=== PATIENT | male | born 1980 | race Caucasian/White ===

== ENCOUNTER 2020-06-06 03:13 | Emergency (ER) | payer OTHER, SELFPAY ==
[2020-06-06 03:14] VITALS: BP 150/80; PULSE 120; O2SAT 98
[2020-06-06 03:21] VITALS: BP 138/75; PULSE 96; RESP 18; TEMP 37.1; O2SAT 97; BMI 32.3
--- NOTE | 2020-06-06 03:34 | ED.WOUNDLAC ---
HPI - Wound/Laceration General Chief Complaint: Wound/Laceration Stated Complaint: CUT THUMB OPENING BOTTLE,ETOH USE Time Seen by Provider: 06/06/20 03:28 Source: patient Mode of arrival: EMS Limitations: no limitations History of Present Illness HPI narrative: Patient comes emergency room complaining of a left thumb laceration. Patient states that he was trying to open a beer bottle, patient was already intoxicated, for a lot of pressure on the bottle neck which snap, patient lacerated the palmar aspect of his left thumb. EMS apply compression dressings and brought to the emergency room. Otherwise patient has no complaints. Patient states that he is up-to-date with his tetanus immunization. Related Data Allergies Allergy/AdvReac Type Severity Reaction Status Date / Time No Known Allergies Allergy Verified 06/06/20 03:20 Review of Systems Review of Systems: Constitutional : No Weight loss, No Fever, No Chills, No Night Sweats, No Fatigue, No Malaise ENT/Mouth : No Hearing loss, No Ear Pain, No Nasal Congestion, No Sinus Pain, No Hoarseness, No sore throat, No Rhinorrhea, No Swallowing Difficulty Eyes: No Eye Pain, No Swelling, No Redness, No Foreign Body, No Discharge, No Vision Changes Cardiovascular : No Chest Pain, No SOB, No Dyspnea on Exertion, No Orthopnea, No Edema, No Palpitations Respiratory : No Cough, No Sputum, No Wheezing, No Smoke Exposure, No Dyspnea Gastrointestinal : No Nausea, No Vomiting, No Diarrhea, No Constipation, No abdominal Pain, No Hematochezia, No Melena Genitourinary : no irregular bleeding, No Dysuria, No Urinary Frequency, No Hematuria, No Urinary Incontinence, No Urgency, No Flank Pain, No Urinary Flow Changes, No Hesitancy Musculoskeletal : No joint pain, No Myalgias, No Joint Swelling Skin : Laceration to the thumb palmar aspect on the left side Neuro : No Weakness, No Numbness, No Paresthesias, No Loss of Consciousness, No Dizziness, No Headache Psych : No Anxiety/Panic, No Depression, No SI/HI/AH/VH, No Social Issues, Heme/Lymph: No Bruising, No Bleeding,No Lymphadenopathy Endocrine : No Polyuria, No Polydipsia, No Temperature Intolerance PMFSH Past Medical History Medical History Eczema Social History Social History Advance Directives: No Advance Directives Information Provided: No Physical Exam Vital Signs: Vital Signs: Last Vital Signs Temp 98.7 F 06/06/20 03:21 Pulse 96 06/06/20 03:21 Resp 18 06/06/20 03:21 BP 138/75 06/06/20 03:21 Pulse Ox 97 06/06/20 03:21 Body Mass Index 32.3 Appearance: Alert. Oriented X3. No acute distress. Eyes: Pupils equal, round and reactive to light. ENT: Pharynx normal. Neck: Normal inspection. Neck supple. No lymph nodes noted. No crepitus CVS: Normal heart rate and rhythm. Pulses normal. Normal S1 and S2 Respiratory: No respiratory distress. Breath sounds normal. No Wheezing. No rales Abdomen: Soft and nontender. No rigidity. No distention. good BS x4 Skin: Skin warm and dry. Thumb palmar aspect left side has a U shaped laceration, thumb inspected under a bloodless field, not tendons visualized, patient is able to flex extend and oppose the left thumb Extremities: No lower extremity edema. No lower extremity edema. No Lacerations. No Rash Neuro: Oriented X 3. No motor deficit. No sensory deficit. Moving all extermities. No slurred speech. Course Course Course Narrative: Patient tolerated well the procedure. Patient instructed to return to the emergency room if he sees any signs of infection Procedures Laceration Laceration 1: Site: hand (Left thumb palmar aspect) Side (If applicable): left Size (cm): 1.5 Description: flap Depth: simple, single layer Local Anesthetic: lidocaine 2% Amount of anesthesia used (mL): 2 Pre-repair: wound explored and wound margins revised Skin layer closed with: nylon Size (cm): 6-0 Number of sutures: 5 Technique: simple, interrupted Discharge Plan Discharge Clinical Impression: Laceration Patient Disposition: Home, Self-Care Instructions: Finger Laceration (ED) Additional Instructions: Your stitches need to be removed in 7-10 days. If you have any signs of infection such as redness, pus drainage, severe pain, fever, any new symptoms, please return to the emergency room. Please follow-up with your primary care physician tomorrow. If you have any worsening or new symptoms, please return to the emergency room or call 911
[2020-06-06] MEDS: Lidocaine HCl 2 % MPF 5 ML VIAL 10 ML INFILTRATI (03:40)
== END 2020-06-06 04:27 | disposition home or self-care (01) ==
PROVIDERS: Emergency Provider Emergency Medicine; PCP Physician Assistant Medical
DX: S61.012A Laceration without foreign body of left thumb without damage to nail, initial encounter (principal); W26.8XXA Contact with other sharp object(s), not elsewhere classified, initial encounter; Y93.89 Activity, other specified; Y92.9 Unspecified place or not applicable; Y99.9 Unspecified external cause status
CPT/HCPCS: 12001; 99283; 99284

== ENCOUNTER 2021-04-04 20:44 | Emergency (ER) | payer OTHER, SELFPAY ==
[2021-04-04 20:59] VITALS: BP 120/64; PULSE 102; RESP 16; O2SAT 98; BMI 28.2
[2021-04-04 21:24] VITALS: BP 119/85; PULSE 90; RESP 18; TEMP 36.7; O2SAT 97
--- NOTE | 2021-04-04 21:35 | MHC.RECOVSUP ---
? Reason for consult:Recovery Support o Current location:ED10 o Identified substance use concern:ETOH - Withdrawal - Support ? Intervention: o Community resources provided o Harm reduction discussion ? Plan: o Patient awaiting crisis evaluation o Patient to follow up with [facility] after discharge ? Additional information:Patient had 4 beers, patient refuses detox. Gave patient community resources `
--- NOTE | 2021-04-04 21:38 | ED_ITS ---
HPI - Psych General Chief Complaint: ETOH/Substance Use Stated Complaint: SI, SECTION [employer] BY [employer] Time Seen by Provider: 04/04/21 21:26 Source: patient, EMS and police Mode of arrival: EMS Limitations: no limitations History of Present Illness HPI Narrative: 40-year-old male brought in by police department in [place] for further evaluation of SI/ alcohol intoxication. The patient in the ED admitted to drinking plenty of alcohol last night, but patient do not think he has drunk, the police brought in the patient after patient's mother reported SI, mother stated that the patient was trying to strangulate himself with a rope. however patient is declining that he is SI or he tried to strangulate himself. reportedly, mother showed the police a picture of the patient with a melnay up around his neck and he standing on a chair. Related Data Allergies Allergy/AdvReac Type Severity Reaction Status Date / Time No Known Allergies Allergy Verified 06/06/20 03:20 Review of Systems Review of Systems: all other systems are reviewed and are negative Constitutional: Reports as per HPI and Reports no additional constitutional complaints Eyes: Reports as per HPI and Reports no additional eye complaints Reports system reviewed and no additional complaints, except as documented Cardiovascular: Reports as per HPI and Reports no additional cardiovascular comp laints Respiratory: Reports as per HPI and Reports no additional respiratory complaints Gastrointestinal: Reports as per HPI and Reports no additional gastrointestinal complaints Genitourinary: Reports no additional female genitourinary complaints Musculoskeletal: Reports no additional musculoskeletal complaints Skin/Breast: Reports system reviewed and no additional complaints, except as docu Psychiatric: Reports no additional psychiatric complaints Endocrine: Reports no additional endocrine complaints Hematologic/Lymphatic: Reports no additional hematologic/lymphatic complaints Allergic/Immunologic: Reports no additional allergic/immunologic complaints Reports system reviewed and no additional complaints, except as documented and Reports Abnormal speech present [facility] Past Medical History Medical History Eczema Social History Social History Advance Directives: No Physical Exam Vital Signs: Vital Signs: Last Vital Signs Temp 98.2 F 04/05/21 02:12 Pulse 75 04/05/21 02:12 Resp 16 04/05/21 02:12 BP 146/97 H 04/05/21 02:12 Pulse Ox 98 04/05/21 02:12 BMI result Body Mass Index 28.2 vital signs have been reviewed as appeared to be correct. Blood pressure normal. Heart rate normal. Respiration rate normal. Temperature normal. Oxygen saturation normal. Appearance: Alert. Oriented X3. No acute distress. Head: Normal external exam. Normocephalic. Atraumatic. No Concepcion signs noted. No raccoon eyes noted Eyes: PERRLA. EOMI. Conjunctiva and sclera normal. Eyelids normal. ENT: TM's Normal. Pharynx normal. Uvula midline. Moist mucous membranes. No trismus noted. No drooling noted. No muffled voice noted. Neck: Normal inspection. Neck supple. FROM. No adenopathy. Thyroid Normal. No meningeal signs. No neck mass noted. CVS: Normal heart rate and rhythm. Heart sound normal. No murmurs noted. Pulses normal throughout. Respiratory: No respiratory distress. Painless inspiration. Breath sounds normal. No wheezes/rales/rhonchi noted. Chest nontender. No accessory muscle usage noted or decreased air movement noted. Abdomen: Soft and nontender. Bowel sounds normal in all 4 quadrants. No distention noted. No organomegaly noted. No visible injury noted. Back: No CVA tenderness. Full range of motion noted. Skin: Skin warm and dry. Normal skin color. Normal skin turgor. No rashes/lesions/lacerations noted. Extremities: No lower extremity edema. Extremities exhibit normal range of motion. Extremities nontender. Neuro: Oriented X 3. Cranial nerve exam: II-XII are grossly intact No motor deficit. No sensory deficit. Reflexes normal. Patient Appearance: Appropriate Patient Orientation: Person, Place, Time and Situation Level of Consciousness: Awake, Appropriate and Alert Patient Behavior: Talkative, Cooperative. Mood Description: Depressed. Affect Description: Flat. Patient Cognition Impaired: No Ability to Follow Directions: Good Speech Pattern: Spontaneous Speech Memory Description: Intact Hallucinations: Not present. Delusions: Not Present Thought Process: Logical. Thought Content: Unremarkable Depressive Symptoms: Increased anxiety. Judgement: Fair. Course Reevaluation(s) Reevaluation #1: Physician observation started at 23:00 . Patient placed in physician observation because the patient needed further evaluation by N and placement patient's vital sign were stable, patient is alert and oriented , neuro exam unchanged, unremarkable rest of physical exam. MDM - Psych Lab Data Result diagrams: 04/04/21 21:59 04/04/21 21:59 Labs: Lab Results 04/04/21 04/04/21 04/04/21 Range/Units 21:59 21:59 21:59 WBC 6.1 (4.8-10.8) X10*3/uL RBC 5.24 (4.60-5.80) X10*6/uL Hgb 16.7 (14.0-18.0) g/dl Hct 48.9 (42.0-52.0) % MCV 93.3 (80.0-98.0) fL MCH 31.9 (27.0-33.0) pg MCHC 34.2 (31.0-36.0) g/dl RDW 12.5 (11.0-16.0) % Plt Count 345 (160-400) X10*3/uL MPV 8.6 L (9.4-12.4) fL Immature Gran % (Auto) 0.5 H (0.0-0.4) % Neut % (Auto) 53.8 (45-73) % Lymph % (Auto) 38.4 (20-40) % [place] % (Auto) 5.8 (2-11) % Eos % (Auto) 0.8 (0-4) % Baso % (Auto) 0.7 (0-2) % Lymph # (Auto) 2.3 (1.2-4.9) X10*3/uL [place] # (Auto) 0.4 (0.1-1.2) X10*3/uL Eos # (Auto) 0.1 (0.0-0.4) X10*3/uL Baso # (Auto) 0.0 (0.0-0.2) X10*3/uL Abs Immat Gran (auto) 0.03 (0.00-0.03) X10*3/uL Absolute Neuts (auto) 3.3 (2.0-8.3) x10*3/uL Absolute Nucleated RBC 0.000 (0.0-0.012) X10*3/uL Nucleated RBC % (auto) 0.0 (0.0-0.2) /100WBC Sodium 144 (135-145) mmol/L Potassium 4.6 (3.3-5.1) mmol/L Chloride 106 (96-108) mmol/L Carbon Dioxide 29 (22-29) mmol/L Anion Gap 14 (12-20) BUN 11 (9-16) mg/dL Creatinine 1.07 (0.5-1.4) mg/dL Estim Creat Clear Calc 95.7 Estimated GFR > 60 Random Glucose 138 H (60-115) mg/dL Calcium 10.1 (8.4-10.2) mg/dL Magnesium 2.3 (1.6-2.6) mg/dL Urine Opiates Screen (Not Detect) Urine Fentanyl Screen (Not Detect) Ur Barbiturates Screen (Not Detect) Ur Phencyclidine Scrn (Not Detect) Ur Amphetamines Screen (Not Detect) U Benzodiazepines Scrn (Not Detect) Urine Cocaine Screen (Not Detect) U Marijuana (THC) Screen (Not Detect) Ethyl Alcohol 307 H* mg/dL COVID-19 ([facility]) (Negative) COVID-19 Clin Com 04/04/21 04/04/21 Range/Units 22:10 23:19 WBC (4.8-10.8) X10*3/uL RBC (4.60-5.80) X10*6/uL Hgb (14.0-18.0) g/dl Hct (42.0-52.0) % MCV (80.0-98.0) fL MCH (27.0-33.0) pg MCHC (31.0-36.0) g/dl RDW (11.0-16.0) % Plt Count (160-400) X10*3/uL MPV (9.4-12.4) fL Immature Gran % (Auto) (0.0-0.4) % Neut % (Auto) (45-73) % Lymph % (Auto) (20-40) % [place] % (Auto) (2-11) % Eos % (Auto) (0-4) % Baso % (Auto) (0-2) % Lymph # (Auto) (1.2-4.9) X10*3/uL [place] # (Auto) (0.1-1.2) X10*3/uL Eos # (Auto) (0.0-0.4) X10*3/uL Baso # (Auto) (0.0-0.2) X10*3/uL Abs Immat Gran (auto) (0.00-0.03) X10*3/uL Absolute Neuts (auto) (2.0-8.3) x10*3/uL Absolute Nucleated RBC (0.0-0.012) X10*3/uL Nucleated RBC % (auto) (0.0-0.2) /100WBC Sodium (135-145) mmol/L Potassium (3.3-5.1) mmol/L Chloride (96-108) mmol/L Carbon Dioxide (22-29) mmol/L Anion Gap (12-20) BUN (9-16) mg/dL Creatinine (0.5-1.4) mg/dL Estim Creat Clear Calc Estimated GFR Random Glucose (60-115) mg/dL Calcium (8.4-10.2) mg/dL Magnesium (1.6-2.6) mg/dL Urine Opiates Screen Not Detected (Not Detect) Urine Fentanyl Screen Not Detected (Not Detect) Ur Barbiturates Screen Not Detected (Not Detect) Ur Phencyclidine Scrn Not Detected (Not Detect) Ur Amphetamines Screen Not Detected (Not Detect) U Benzodiazepines Scrn Not Detected (Not Detect) Urine Cocaine Screen Not Detected (Not Detect) U Marijuana (THC) Screen Not Detected (Not Detect) Ethyl Alcohol mg/dL COVID-19 ([facility]) Negative (Negative) COVID-19 Clin Com See Note Discharge Plan Discharge Clinical Impression: Alcoholic intoxication
[2021-04-04 22:03] LABS: MANUAL DIFF FLAG NO
[2021-04-04 22:04] LABS: Basophils Percent Auto 0.7 % (0-2); Eosinophils Absolute Auto 0.1 X10*3/uL (0.0-0.4); Eosinophils Percent Auto 0.8 % (0-4); Hematocrit 48.9 % (42.0-52.0); Hemoglobin 16.7 g/dl (14.0-18.0); Imm Gran Abs Auto 0.03 X10*3/uL (0.00-0.03); Imm Gran Pct Auto 0.5 % (0.0-0.4); Lymphocytes Absolute Auto 2.3 X10*3/uL (1.2-4.9); Lymphocytes Percent Auto 38.4 % (20-40); Mean Corpuscular HGB Conc 34.2 g/dl (31.0-36.0); Mean Corpuscular Hemoglobin 31.9 pg (27.0-33.0); Mean Corpuscular Volume 93.3 fL (80.0-98.0); Mean Platelet Volume 8.6 fL (9.4-12.4); Monocytes Absolute Auto 0.4 X10*3/uL (0.1-1.2); Monocytes Percent Auto 5.8 % (2-11); Neutrophils Absolute Auto 3.3 x10*3/uL (2.0-8.3); Neutrophils Percent Auto 53.8 % (45-73); Platelet Count 345 X10*3/uL (160-400); Red Blood Count 5.24 X10*6/uL (4.60-5.80); Red Cell Distribution Width 12.5 % (11.0-16.0); White Blood Count 6.1 X10*3/uL (4.8-10.8)
[2021-04-04 22:15] LABS: Ethanol 307 mg/dL
[2021-04-04 22:16] VITALS: BP 138/93; PULSE 88; RESP 17; O2SAT 97
[2021-04-04 22:17] LABS: Anion Gap 14 (12-20); Blood Urea Nitrogen 11 mg/dL (9-16); Calcium 10.1 mg/dL (8.4-10.2); Carbon Dioxide 29 mmol/L (22-29); Chloride 106 mmol/L (96-108); Creatinine Clr Calc Pharmacy 95.7; Estimated Glomerular Filt Rate > 60; Glucose Random 138 mg/dL (60-115); Potassium 4.6 mmol/L (3.3-5.1); Sodium 144 mmol/L (135-145)
[2021-04-04 22:31] LABS: Amphetamine Screen Urine Not Detected (Not Detect); Barbiturates, Urine Not Detected (Not Detect); Benzodiazepines Screen Urine Not Detected (Not Detect); Cannabinoid Screen Urine Not Detected (Not Detect); Cocaine Screen Urine Not Detected (Not Detect); Fentanyl, urine Not Detected (Not Detect); Opiate Screen Urine Not Detected (Not Detect); Phencyclidine Screen Urine Not Detected (Not Detect)
[2021-04-04 23:21] VITALS: BP 134/94; PULSE 78; RESP 18; TEMP 37; O2SAT 98
[2021-04-04 23:35] LABS: Magnesium 2.3 mg/dL (1.6-2.6)
[2021-04-04 23:43] LABS: COVID-19 Test Negative (Negative)
[2021-04-05] VITALS (7 sets, daily range): BP systolic 118–146; BP diastolic 80–97; PULSE 75–93; RESP 14–18; TEMP 36.6–36.8; O2SAT 97–98
--- NOTE | 2021-04-05 01:21 | PC.NURSE ---
[facility] crisis referral completed.
--- NOTE | 2021-04-05 01:52 | PC.NURSE ---
This RN spoke to PT's mother, with PT's consent, about the events that transpired on Sunday (04/04/2021) evening. PT's mother stated the PT placed a rope around his neck, stood on a chair, and threatened to kill himself. The mother showed this RN pictures of event as well. The mother also stated that PT has been drinking increasing amounts of alcohol daily and becoming more and more belligerent around the house; slamming things around and damaging the cross in the house. The mother stated that the PT often wakes up in the morning and apologizes for his actions the night before, but also does not remember completely what occurred. Mother is very concerned about the health and safety of her son and feels that he needs help with his alcohol addiction and abuse.
[2021-04-05] MEDS: Nicotine Polacrilex 2 MG GUM BUCCAL ×3 (02:08→09:26)
--- NOTE | 2021-04-05 09:51 | PC.NURSE ---
first contact w pt, ambulating w steady gait in room on phone, sitter within view for safety. pt asking for nicorette gum, provided. tlerating po w/o issue, in behavioral control, calm and cooperative. per [facility], clinician will be out for eval sometime in early afternoon
--- NOTE | 2021-04-05 11:27 | PC.NURSE ---
this rn following up with n crisis about eta for pt eval. per n earlier, clinician was anticipated early afternoon . per [facility], clinician will be out to see the pt in roughly 2-3 hours .
--- NOTE | 2021-04-05 11:29 | PC.NURSE ---
care team at bedside for pt crisis eval.
--- NOTE | 2021-04-05 12:46 | MHC.CARE ---
CARE Team meets with pt for risk assessment. Pt came to [facility] ED last night via ambulance on sect 12 issued by police from his mother's home where he resides with her. Per [address], pt engaged in suicidal behavior, standing on a chair with a strap around his neck and making SI statements. BAL upon arrival over 300. Pt denies SI/HI throughout stay at [facility]. Pt reports to CARE Team that he has a bad drinking problem and needs help with this. He denies feeling depressed, anxious or having any current or past mental health dx. Pt does appear to be struggling with depression, reporting feelings of lonliness, sadness, boredom, and this often precipitates pt's drinking. Pt states that every other day he consumes approx 10 drinks, both hard liquor and beer. He identifies that he only drinks alone and blasts dark, depressing music. He reports that he has a hx of making SI statements when intoxicated. He states I would never really do it, it is for attention and I never feel that way when I'm sober. Pt denies hx of suicide attempts or active SI. He reports he engaged in self harm by cutting as a teen once, and then went to [facility]. He denies hx of inpt hospitalization and has no current providers. Pt lives with mother and works with father. He denies having withdrawal sx, but reports having cravings for alcohol. He identifies feeling shame about events of last night and appears motivated and help seeking at this time. CARE Team speaks with pt's mother, who was present w/ pt last night when he made SI statements and engaged in suicidal bx. She states that this is the third time that pt has stood on the chair in the basement with the strap around his neck, threatening to step off the chair. She states that this is not a genuine attempt or gesture, siting that he is not setting this up in a way that he could actually hang himself. Mother reports he has done this several times in the past, and she does not feel this is genuine, stating that this is attention seeking behavior. Mother reports that pt has put holes in her cross, broken TV and thrown things. Mother reports that she has tried to set boundaries with pt, but has not followed through Mother reports that she and father are , but just spoke and now on the same page. CARE Team recommends to pt, mother and father that pt go to [facility] IOP (pt offered ATS and declined, also reported he does not experience withdrawal). If pt does not maintain sobriety with IOP, pt should seeking inpt dual tx. Parents are advised to no longer house and employ pt if he is not following through with tx and section 35 education is provided. Mother agrees to set firm boundaries with pt, and CARE Team recommends that she seek support through individual therapy or [facility]. CARE Team contact info is provided and pt and family are encouraged to follow up as needed. IPLOC should be explored if pt continues with suicidal behavior. Case discussed with Sanam BLACKWELL.
--- NOTE | 2021-04-05 15:11 | MHC.CARE ---
CARE Team verifies with pt and mother that pt was not suspended off the ground and was not tethered to anything with the strap around his neck. Pt and mother confirm that pt was on a very small step and would not have been able to hang himself under these circumstances. Pt continues to deny SI and mother continues to feel that pt's suicidal behavior last night was attention seeking (as it has been in the past) and not reflective of genuine suicidality. Suicidal behavior was not lethal and with high rescue, as pt informed his mother that he was putting strap around his neck. Pt and family are committed to the outpatient plan. Mother agrees to call 911 if pt makes SI statements or engages in suicidal behavior again. CARE Team will provide a follow up call to pt within the next two days to ensure that this plan is going well. Mother is familiar with [facility] crisis hotline. CARE Team contact info was provided to pt and family. Case discussed with Dr. Mejias, who agrees with plan for discharge after continued verification of above information.
--- NOTE | 2021-04-06 14:50 | MHC.CARE ---
CARE Team social work internal communications specialist made a follow-up call with patient. Patient sounded like he was in good spirits and is no longer suicidal. The patient denied needing any further assistance from CARE Team, but was encouraged to reach out if needed.
== END 2021-04-05 15:14 | disposition home or self-care (01) ==
PROVIDERS: Emergency Provider Emergency Medicine
DX: F10.120 Alcohol abuse with intoxication, uncomplicated (principal); Y90.8 Blood alcohol level of 240 mg/100 ml or more; R45.851 Suicidal ideations; Z20.822 Contact with and (suspected) exposure to COVID-19; F17.200 Nicotine dependence, unspecified, uncomplicated
CPT/HCPCS: 36415; 80048; 80307; 82077; 83735; 85025; 87635; 99284